=== PATIENT | male | born 1975 | race Two or more races ===

== ENCOUNTER 2024-06-16 15:35 | Outpatient (AMB) | payer OTHER, SELFPAY ==
--- OUTSIDE RECORDS SUMMARY | 2024-06-16 15:37 | XMS_ITS | Patient Health Record ---
Author Organization [facility] Address [address] [facility] [address] [place] [address] Care Team Providers Care Supply Chain Design Manager Name Role Phone Unknown, Unknown Primary Care Provider Unavailab MARQUES BarrazaHAMMAD Unavailable [phone] Juan DiegochunGavi hubbard Unavailable [phone] Allergies No Known Allergies Results Component Value Reference Range Notes Comp. Metabolic Panel ([id number] Reviewed date:02/20/2024 07:56:40 PM Interpretation: Performing Lab:[facility], [address] [place] [address], Phone - [phone], Director - Jayson Notes/Report: Glucose 94 70-99 mg/dL BUN 20 6-24 mg/dL Creatinine 0.95 0.76-1.27 mg/dL eGFR 99 >59 mL/min/1.73 BUN/Creatinine Ratio 21 9-20 Sodium 139 134-144 mmol/L Potassium 4.6 3.5-5.2 mmol/L Chloride 103 96-106 mmol/L Anion Gap 12.0 10.0-18.0 mmol/L Carbon Dioxide, Total 24 20-29 mmol/L Calcium 9.4 8.7-10.2 mg/dL Protein, Total 7.5 6.0-8.5 g/dL Albumin 4.5 4.1-5.1 g/dL Globulin, Total 3.0 1.5-4.5 g/dL Bilirubin, Total 0.8 0.0-1.2 mg/dL Alkaline Phosphatase 94 44-121 IU/L AST (SGOT) 22 0-40 IU/L ALT (SGPT) 41 0-44 IU/L LP+Non-HDL Cholesterol-[id number] 5 Reviewed date:02/20/2024 07:54:23 PM Interpretation: Performing Lab:[facility], [address], [place], Phone - [phone], Director - Jayson Notes/Report: Cholesterol, Total 237 100-199 mg/dL Triglycerides 127 0-149 mg/dL HDL Cholesterol 41 >39 mg/dL VLDL Cholesterol Reilly 23 5-40 mg/dL LDL Chol Calc ([facility]) 173 0-99 mg/dL Non-HDL Cholesterol 196 0-129 mg/dL Reason For Referral Reason c-scope please evalu ate and treat Diagnosis 1 Encounter for screen ing for malignant neoplasm of colon (Z12.11) Referral Organization [facility] Referring Provider First Name [facility] Referring Provider Last Name Derick Referred Provider Specialty Gastroentero logy General Notes REFERRAL WAS FAXED [facility]. PLEASE CONTACT PATIENT FOR SCHEDULING., Brandi Chaves 02/24/2024 04:00:15 PM > Referral Priority Routine Reason Patient would like t o establish care with production support manager, he has strong FHX of CVD please evaluate and treat Diagnosis 1 Encounter for screen ing for cardiovascular disorders (Z13.6) Referral Organization [facility] Referring Provider First Name Vanessa Referring Provider Last Name Derick Referred Provider Specialty Cardiology General Notes Referral was faxed [facility]. Please contact patient for scheduling.Anastacio Rashida 02/28/2024 01:44:15 PM > Referral Priority Routine Reason please evaluate and treat Please evaluate and treat Diagnosis 1 Pain in left shoulde r (M25.512) Referral Organization [facility] Referring Provider First Name Vanessa Referring Provider Last Name Derick Referred Provider Specialty Orthopedic S urgery General Notes Please call the jigar ent to schedule the appointment Referral Priority Routine Reason please evaluate and treat Please evaluate and treat Diagnosis 1 Pain in left shoulde r (M25.512) Referral Organization [facility] Referring Provider First Name [facility] Referring Provider Last Name Derick Referred Provider Specialty Physical The rapist General Notes Please call the jigar ent to schedule the appointment Referral Priority Routine Medications Medication SIG (Take, Route, Fr equency, Duration) Notes Start Date End Date Status Ibuprofen 800 MG 1 tablet with food o r milk as needed Orally every 8 hrs for 30 days Active Meloxicam 15 MG TAKE 1 TABLET BY ROD TH EVERY DAY FOR 30 DAYS for 30 Active tiZANidine HCl 4 MG 1 tablet at bedtime as needed Orally Once at night for 90 days Active Immunizations Vaccine Route Administration Date Status Comme nts COVID Moderna Unknown 06/04/2020 Administered COVID Moderna Unknown 07/02/2020 Administered COVID Moderna Unknown 02/24/2021 Administered TDAP Unknown 09/19/2021 Administered Social History Tobacco Use: Social History Observation Description Date Details (start date - stop date) Former Smoker NA - NA Tobacco Use/Smoking Question Answer Notes Are you a former smoker How long has it been since you last smoked? 5-10 years Problems Problem Type SNOMED Code ICD Code Onset Dates Problem Status W/U Status Risk Notes Problem Obesity due to excess calories (425261612) Other obesity due to excess calories (E66.09) Active confirmed Problem Migraine with aura, not intractable, without status migrainosus (G43.109) Active confirmed Vital Signs Heart Rate 90 /min 04/11/2024 Temperature 96.7 degrees Fahrenheit 04/11/2024 Blood pressure diastolic 80 mm Hg 04/11/2024 Oximetry 98 % 04/11/2024 Height 5'7'' in 04/11/2024 Blood pressure systolic 110 mm Hg 04/11/2024 Weight 230.0 lbs 04/11/2024 BMI 36.02 kg/m2 04/11/2024 Encounters Encounter Location Date Provider Diagnosis [address] [place] [address] 08/16/[address] [address] 02/24/2024 Ghadeer Mazloum Migraine with aura, not intractable, without status migrainosus G43.109 ; Encounter for general adult medical examination without abnormal findings Z00.00 ; Other obesity due to excess calories E66.09 ; Dietary counseling and surveillance Z71.3 ; Encounter for screening for malignant neoplasm of colon Z12.11 ; Hyperlipidemia, mixed E78.2 and Annual visit for general adult medical examination without abnormal findings Z00.[address] [place] [address] 04/11/2024 Ghadeer Mazloum Pain in left shoulde r M25.512 [facility] [address] [facility] [address] [place] [address] 02/24/2024 MONA BROOKS [facility] [address] [facility] [address] [place] [address] 02/28/2024 Ghadeer Mazloum [facility] [address] [facility] [address] [place] [address] 05/17/2024 Ghadeer Mazloum Pain in left shoulde r M25.512 [facility] [address] [facility] [address] [place] [address] 05/24/2024 Ghadeer Mazloum Encounter for screening for respiratory tuberculosis Z11.1 Assessments Encounter Date Diagnosis (ICD Code) Assessment Notes Treatment Notes Treatment Clinical Notes Section Notes 02/24/2024 Migraine with aura, not intractable, without status migrainosus (ICD-10 - G43.109) Mr Mao is a 48-year-old gentleman with migraine headaches here for annual physical examination. Plan is as follows: Migraine. -Continue Ibuprofen 800 MG as needed on an empty stomach. Identify and watch out for any triggers. Class 1 obesity. Advised dietary restrictions and regimental exercise. Goal is to lose 20 lbs until next visit. HLD: - Statin not recommended at this point, he is close to meet the guidelines of initiating statins, however I have discussed given his family history and abnormal lipid panel, I would suggest starting low dose maintenance along with diet modification. He defers that or now, instead he prefers diet modification first and then we will re-evaluate in 3 months. Given strong family history of CVD, calculated CVD score and it came up to 7.8 percent, recommendation is if number is 10 percent or higher is to discuss initiating ASA. However, given that his lifestyle is mostly sedentary, vapes, abnormal lipid panel along with family history of cardiac events. I have recommended starting on ASA for secondary prevention. Also, they would like to be referred to cardiology to establish care. Referred patient. - As for now we will optimize management. Colon cancer screening. Referred to GI for screening colonoscopy. Vision: UTD Dentist: UTD Immunizations. He is up-to-date on his COVID vaccinations. Screening blood work before next appointment I have rendered the services for this patient under direct supervision of Dr. Brooks, who did not see the patient but was available upon request 02/24/2024 Encounter for general adult medical examination without abnormal findings (ICD-10 - Z00.00) Mr Mao is a 48-year-old gentleman with migraine headaches here for annual physical examination. Plan is as follows: Migraine. -Continue Ibuprofen 800 MG as needed on an empty stomach. Identify and watch out for any triggers. Class 1 obesity. Advised dietary restrictions and regimental exercise. Goal is to lose 20 lbs until next visit. HLD: - Statin not recommended at this point, he is close to meet the guidelines of initiating statins, however I have discussed given his family history and abnormal lipid panel, I would suggest starting low dose maintenance along with diet modification. He defers that or now, instead he prefers diet modification first and then we will re-evaluate in 3 months. Given strong family history of CVD, calculated CVD score and it came up to 7.8 percent, recommendation is if number is 10 percent or higher is to discuss initiating ASA. However, given that his lifestyle is mostly sedentary, vapes, abnormal lipid panel along with family history of cardiac events. I have recommended starting on ASA for secondary prevention. Also, they would like to be referred to cardiology to establish care. Referred patient. - As for now we will optimize management. Colon cancer screening. Referred to GI for screening colonoscopy. Vision: UTD Dentist: UTD Immunizations. He is up-to-date on his COVID vaccinations. Screening blood work before next appointment I have rendered the services for this patient under direct supervision of Dr. Brooks, who did not see the patient but was available upon request 04/11/2024 Pain in left shoulder (ICD-10 - M25.512) Mr Mao is a 48-year-old gentleman with migraine headaches here for left shoulder pain. Plan as follows: Left shoulder pain: - Ongoing shoulder pain that radiates up to the Cervical for the past couple of months. He admits to past trauma playing sports. Pain improved with ibuprofen massaging. No specific triggers. Physical examination is remarkable for tenderness along the left trapezius muscle, positive Spurling test. Differential diagnosis, possible muscle strain, possible cervical nerve compression/Cerv ical radiculopathy. I will start patient on meloxicam side effects have been discussed and medication to be taken with food. Tizanidine to be taken at night before bedtime. I have also referred patient to physical therapy and to orthopedic for further evaluation and management. I have rendered the services for this patient under direct supervision of Dr. Brooks, who did not see the patient but was available upon request 05/17/2024 Pain in left shoulder (ICD-10 - M25.512) 05/24/2024 Encounter for screening for respiratory tuberculosis (ICD-10 - Z11.1) 02/24/2024 Other obesity due to excess calories (ICD-10 - E66.09) Mr Mao is a 48-year-old gentleman with migraine headaches here for annual physical examination. Plan is as follows: Migraine. -Continue Ibuprofen 800 MG as needed on an empty stomach. Identify and watch out for any triggers. Class 1 obesity. Advised dietary restrictions and regimental exercise. Goal is to lose 20 lbs until next visit. HLD: - Statin not recommended at this point, he is close to meet the guidelines of initiating statins, however I have discussed given his family history and abnormal lipid panel, I would suggest starting low dose maintenance along with diet modification. He defers that or now, instead he prefers diet modification first and then we will re-evaluate in 3 months. Given strong family history of CVD, calculated CVD score and it came up to 7.8 percent, recommendation is if number is 10 percent or higher is to discuss initiating ASA. However, given that his lifestyle is mostly sedentary, vapes, abnormal lipid panel along with family history of cardiac events. I have recommended starting on ASA for secondary prevention. Also, they would like to be referred to cardiology to establish care. Referred patient. - As for now we will optimize management. Colon cancer screening. Referred to GI for screening colonoscopy. Vision: UTD Dentist: UTD Immunizations. He is up-to-date on his COVID vaccinations. Screening blood work before next appointment I have rendered the services for this patient under direct supervision of Dr. Brooks, who did not see the patient but was available upon request 02/24/2024 Dietary counseling and surveillance (ICD-10 - Z71.3) Mr Mao is a 48-year-old gentleman with migraine headaches here for annual physical examination. Plan is as follows: Migraine. -Continue Ibuprofen 800 MG as needed on an empty stomach. Identify and watch out for any triggers. Class 1 obesity. Advised dietary restrictions and regimental exercise. Goal is to lose 20 lbs until next visit. HLD: - Statin not recommended at this point, he is close to meet the guidelines of initiating statins, however I have discussed given his family history and abnormal lipid panel, I would suggest starting low dose maintenance along with diet modification. He defers that or now, instead he prefers diet modification first and then we will re-evaluate in 3 months. Given strong family history of CVD, calculated CVD score and it came up to 7.8 percent, recommendation is if number is 10 percent or higher is to discuss initiating ASA. However, given that his lifestyle is mostly sedentary, vapes, abnormal lipid panel along with family history of cardiac events. I have recommended starting on ASA for secondary prevention. Also, they would like to be referred to cardiology to establish care. Referred patient. - As for now we will optimize management. Colon cancer screening. Referred to GI for screening colonoscopy. Vision: UTD Dentist: UTD Immunizations. He is up-to-date on his COVID vaccinations. Screening blood work before next appointment I have rendered the services for this patient under direct supervision of Dr. Brooks, who did not see the patient but was available upon request 02/24/2024 Encounter for screening for malignant neoplasm of colon (ICD-10 - Z12.11) Mr Mao is a 48-year-old gentleman with migraine headaches here for annual physical examination. Plan is as follows: Migraine. -Continue Ibuprofen 800 MG as needed on an empty stomach. Identify and watch out for any triggers. Class 1 obesity. Advised dietary restrictions and regimental exercise. Goal is to lose 20 lbs until next visit. HLD: - Statin not recommended at this point, he is close to meet the guidelines of initiating statins, however I have discussed given his family history and abnormal lipid panel, I would suggest starting low dose maintenance along with diet modification. He defers that or now, instead he prefers diet modification first and then we will re-evaluate in 3 months. Given strong family history of CVD, calculated CVD score and it came up to 7.8 percent, recommendation is if number is 10 percent or higher is to discuss initiating ASA. However, given that his lifestyle is mostly sedentary, vapes, abnormal lipid panel along with family history of cardiac events. I have recommended starting on ASA for secondary prevention. Also, they would like to be referred to cardiology to establish care. Referred patient. - As for now we will optimize management. Colon cancer screening. Referred to GI for screening colonoscopy. Vision: ODESSA Dentist: ODESSA Immunizations. He is up-to-date on his COVID vaccinations. Screening blood work before next appointment I have rendered the services for this patient under direct supervision of Dr. Brooks, who did not see the patient but was available upon request 02/24/2024 Hyperlipidemia, mixed (ICD-10 - E78.2) Mr Mao is a 48-year-old gentleman with migraine headaches here for annual physical examination. Plan is as follows: Migraine. -Continue Ibuprofen 800 MG as needed on an empty stomach. Identify and watch out for any triggers. Class 1 obesity. Advised dietary restrictions and regimental exercise. Goal is to lose 20 lbs until next visit. HLD: - Statin not recommended at this point, he is close to meet the guidelines of initiating statins, however I have discussed given his family history and abnormal lipid panel, I would suggest starting low dose maintenance along with diet modification. He defers that or now, instead he prefers diet modification first and then we will re-evaluate in 3 months. Given strong family history of CVD, calculated CVD score and it came up to 7.8 percent, recommendation is if number is 10 percent or higher is to discuss initiating ASA. However, given that his lifestyle is mostly sedentary, vapes, abnormal lipid panel along with family history of cardiac events. I have recommended starting on ASA for secondary prevention. Also, they would like to be referred to cardiology to establish care. Referred patient. - As for now we will optimize management. Colon cancer screening. Referred to GI for screening colonoscopy. Vision: ODESSA Dentist: INEZD Immunizations. He is up-to-date on his COVID vaccinations. Screening blood work before next appointment I have rendered the services for this patient under direct supervision of Dr. Brooks, who did not see the patient but was available upon request 02/24/2024 Annual visit for general adult medical examination without abnormal findings (ICD-10 - Z00.00) Mr Mao is a 48-year-old gentleman with migraine headaches here for annual physical examination. Plan is as follows: Migraine. -Continue Ibuprofen 800 MG as needed on an empty stomach. Identify and watch out for any triggers. Class 1 obesity. Advised dietary restrictions and regimental exercise. Goal is to lose 20 lbs until next visit. HLD: - Statin not recommended at this point, he is close to meet the guidelines of initiating statins, however I have discussed given his family history and abnormal lipid panel, I would suggest starting low dose maintenance along with diet modification. He defers that or now, instead he prefers diet modification first and then we will re-evaluate in 3 months. Given strong family history of CVD, calculated CVD score and it came up to 7.8 percent, recommendation is if number is 10 percent or higher is to discuss initiating ASA. However, given that his lifestyle is mostly sedentary, vapes, abnormal lipid panel along with family history of cardiac events. I have recommended starting on ASA for secondary prevention. Also, they would like to be referred to cardiology to establish care. Referred patient. - As for now we will optimize management. Colon cancer screening. Referred to GI for screening colonoscopy. Vision: UTD Dentist: UTD Immunizations. He is up-to-date on his COVID vaccinations. Screening blood work before next appointment I have rendered the services for this patient under direct supervision of Dr. Brooks, who did not see the patient but was available upon request Plan Of Treatment Pending Test Test Name Order Date Vitamin D, 35-Iizjfcp-[id number] 02/24/2024 CBC/Differential (No Platelet)-[id number] QuantiFERON-TB Gold Plus-[id number] 05/25/19 25 TSH+Free T4 02/24/2024 Future Test Test Name Order Date Lipid Panel-[id number] 02/24/2024 Next Appt Details Provider Name:Gavi starr, 03/09/2025 01:30:00 PM, [address] [address], [place], [address], Insurance Providers Payer Name Payer Address Payer Phone Subscriber Number Group Number Insured Name Patient Relationship to Insured Coverage Start Date Coverage End Date [email or web address] [address] [address] [place] [address] [id number] Robert Mao Self - patient is the insured Medical (General) History Medical History History ICD Code migraine headaches
--- OUTSIDE RECORDS SUMMARY | 2024-06-16 15:38 | XMS_ITS ---
Author Organization [facility] Address [address] [address] Care Team Providers Care Process Equipment Operator Name Role Phone Unknown, Unknown Primary Care Provider Unavailab Gavi Abbasi Unavailable [phone] REASON FOR VISIT Medications Medications Medication SIG (Take, Route, Fr equency, [...] Once at night for 90 days Active Encounters Encounter Location Date Provider Diagnosis [facility] [address] [address] 05/17/2024 Leowaltertiera Adamsonchino Pain in left shoulder M25.512 Assessments Encounter Date Diagnosis (ICD Code) Assessment Notes Treatment Notes Treatment Clinical Notes Section Notes 05/17/2024 Pain in left shoulder (ICD-10 - M25.512) Plan Of Treatment Medication Medication Name Sig Start Date Stop Date Notes Ibuprofen 800 MG 1 tablet with food o r milk as needed Orally every 8 hrs for 30 days Meloxicam 15 MG TAKE 1 TABLET BY ROD TH EVERY DAY FOR 30 DAYS for 30 tiZANidine HCl 4 MG 1 tablet at bedtime as needed Orally Once at night for 90 days Next Appt Details Provider Name:Gavi starr, 03/09/2025 01:30:00 PM, [address] [address], [place], [address], Progress Notes * Slim MAOOB:[birth year] (48 yo M)Acc No.[id number]:05/17/2024 Patient:?Robert MAO :1975???Age:48 Y???Sex:Male Address:[address] [place] [address] * Refills? Refill tiZANidine HCl Tablet, 4 MG, Orally, 90, 1 tablet at bedtime as needed, Once at night, 90 days, Refills=3 Refill Meloxicam Tablet, 15 MG, 30 Tablet, TAKE 1 TABLET BY MOUTH EVERY DAY FOR 30 DAYS, 30, Refills=0 Refill Ibuprofen Tablet, 800 MG, Orally, 90 Tablet, 1 tablet with food or milk as needed, every 8 hrs, 30 days, Refills=3 * true * Date:? Generated for Rehan ryan/Scout/Augieitting on:?06/16/2024 03:37 PM EDT
--- OUTSIDE RECORDS SUMMARY | 2024-06-16 15:38 | XMS_ITS | Clinical Summary ---
Author Organization [facility] My e[employer] App [facility] Address [address] [address] Phone Care Team Providers Care Panelbeater Name Role Phone Jeff Paredes MD Primary Care Provider [phone] Social History Tobacco Use Types Packs/Day Years Used Date Smoking Tobacco: Never Assessed Sex and Gender Information Value Date Recorded Sex Assigned at Not on file Legal Sex Male 11:06 AM EDT Gender Identity Not on file Sexual Orientation Not on file Plan of Treatment Health Maintenance Due Date Last Done Comments DTaP,Tdap,and Td Vaccines (1 - Tdap) 08/24/1995 Hepatitis B Vaccines (1 of 3 - 19+ 3-dose series) 08/24/1995 Cholesterol Screening (Lipid Panel) 09/03/2023 Colorectal Cancer Screening: Colonoscopy 09/03/2023 Depression Screening 09/03/2023 HIV Screening 09/03/2023 Hepatitis C Screening 09/03/2023 Social Influencers of Health Screening 09/03/2023 COVID-19 Vaccine ( - 2023-2 5 season) 2023 Influenza Vaccine (Season Ended) 2024 HIB Vaccines Aged Out No longer eligi ble based on patient's age to complete this topic HPV Vaccines Aged Out No longer eligi ble based on patient's age to complete this topic Hepatitis A Vaccines Aged Out No long er eligible based on patient's age to complete this topic IPV Vaccines Aged Out No longer eligi ble based on patient's age to complete this topic MMR Vaccines Aged Out No longer eligi ble based on patient's age to complete this topic Meningococcal ACWY Vaccine Aged Out N o longer eligible based on patient's age to complete this topic Meningococcal B Vaccine Aged Out No l onger eligible based on patient's age to complete this topic Pneumococcal Vaccine: Pediat rics (0 to 5 Years) and At-Risk Patients (6 to 64 Years) Aged Out No longer eligible b ased on patient's age to complete this topic RSV Immunization Patients Un marcelo 20 months Aged Out No longer eligible b ased on patient's age to complete this topic Varicella Vaccines Aged Out No longer eligible based on patient's age to complete this topic Care Teams Panelbeater Relationship Specialty Start Date End Date Jeff Paredes MD [address] [place] [id number] PCP - General 02/15/23
--- OUTSIDE RECORDS SUMMARY | 2024-06-16 15:38 | XMS_ITS ---
Author Organization [facility] Address [address] [place] [address] Care Team Providers Care Rug Renovator Name Role Phone Unknown, Unknown Primary Care Provider Unavailab Gavi Abbasi Unavailable [phone] Allergies No Known Allergies Reason For Referral Reason please evaluate and treat Please evaluate and treat Diagnosis 1 Pain in left shoulde r (M25.512) Referral Organization [facility] Referring Provider First Name Gavi Referring Provider Last Name Harper Referred Provider Specialty Orthopedic S urgery General Notes Please call the jigar ent to schedule the appointment Referral Priority Routine Reason please evaluate and treat Please evaluate and treat Diagnosis 1 Pain in left shoulde r (M25.512) Referral Organization [facility] Referring Provider First Name Gavi Referring Provider Last Name Harper Referred Provider Specialty Physical The rapist General Notes Please call the jigar ent to schedule the appointment Referral Priority Routine REASON FOR VISIT L shoulder pain Medications Medication SIG (Take, Route, Fr equency, Duration) Notes Start Date End Date Status Meloxicam 15 MG 1 tablet Orally Once a day for 30 days 04/11/2024 Active tiZANidine HCl 4 MG 1 tablet at bedtime as needed Orally Once a day for 30 days 04/11/2024 Ac tive Ibuprofen 800 MG 1 tablet with food o r milk as needed Orally every 8 hrs for 30 days Active Vital Signs Temperature 96.7 degrees Fahrenheit 04/12/19 25 Oximetry 98 % 04/11/2024 Heart Rate 90 /min 04/11/2024 Blood pressure systolic 110 mm Hg 04/12/19 25 Blood pressure diastolic 80 mm Hg 025 Weight 230.0 lbs 04/11/2024 BMI 36.02 kg/m2 04/11/2024 Height 5'7'' in 04/11/2024 Encounters Encounter Location Date Provider Diagnosis [facility] [address] [place] [address] 04/11/2024 Gavi Saleem Pain in left shoulder M25.512 Assessments Encounter Date Diagnosis (ICD Code) Assessment Notes Treatment Notes Treatment Clinical Notes Section Notes 04/11/2024 Pain in left shoulder (ICD-10 - [...] diagnosis, possible muscle strain, possible cervical nerve compression/Cer vical radiculopathy. I will start patient on meloxicam [...] was available upon request Plan Of Treatment Medication Medication Name Sig Start Date Stop Date Notes Meloxicam 15 MG 1 tablet Orally Once a day for 30 days 05/2024 tiZANidine HCl 4 MG 1 tablet at bedtime as needed Orally Once a day for 30 days 04/11/2024 Referrals Referral Date Details 04/11/2024 04/11/2024, please e valuate and treat Please evaluate and treat 04/11/2024 04/11/2024, please e valuate and treat Please evaluate and treat Next Appt Details Follow Up: next appt, Reason : Provider Name:Gavi starr, 03/09/2025 01:30:00 PM, [address] [facility] [facility] [address], [place], [address], Progress Notes * Slim MAOOB:[birth year] (48 yo M)Acc No.[id number]:04/11/2024 Patient:Robert KEEN Provider:?Gavi Saleem :1975???Age:48 Y???Sex:Male Chris e:04/11/2024 Address:[address] [place], [place] [id number] Pcp:Unknown Unknown Subjective: * Chief Complaints: * ???L shoulder pain * HPI: ???Internal Medicine:?Mr Daylin is a 48-year-old gentleman with migraine headaches here for left shoulder pain. He states that it has been since December. He states that pain starts at the left shoulder and radiates up. He admits to past trauma due to sports. No certain triggers. He takes Ibuprofen as needed and massage which improve pain. he denies any other active issues. * ROS:?General/Constitutional:?Overall health?Good.?Change in appetite?denies.?Chills?denies.?Fever?denies.?Night sweats?denies.?Sleep disturbance?denies.?Weight gain?denies.?Weight loss?denies.?Neurologic:?Difficulty speaking?denies.?Dizziness?denies.?Gait abnormality?denies.?Headache?denies.?Loss of strength?denies.?Memory loss?denies.?Seizures?denies.?Tingling/Numbness?denies .?Ophthalmologic:?Blurred vision?denies.?Discharge?denies.?Dry eye?denies.?Red eye?denies.?ENT:?Change in Voice?Denies.?Cold Symptoms?Denies.?Cough?Denies.?Dizziness?Denies.?Nasal Congestion?Denies.?Otalgia?Denies.?postnasal drip?Denies.?Blocked ear?denies.?Nosebleed?denies.?Snoring?denies.?Cardiovascular:?Diaphoresis?Denies.?Pedal Edema?Denies.?PND (Paroxsymal nocturnal dyspnea)?Denies.?Chest pain?denies.?Difficulty laying flat?denies.?Dyspnea on exertion?denies.?Heart murmur?denies.?Orthopnea?denies.?Respiratory:?Snoring?denies.?Asthma?denies.?Cough?denies.?Shortness of breath with exertion?denies.?Sputum production?denies.?Wheezing?denies.?Gastrointestinal:?Change in bowel habits?denies.?Constipation?denies.?Decreased appetite?denies.?Diarrhea?denies.?Heartburn?denies.?Nausea?denies.?Vomiting?vicente es.?Musculoskeletal:?tingling/numbness?Denies.?myalgias?Denies.?Joint Swelling?Denies.?extremeties?normal.?Patient complaining of?left shoulder pain.?Arthritis?denies.?Back problems?denies.?Carpal tunnel?denies.?Joint stiffness?denies.?Muscle aches?denies.?Endocrine:?Bowel Changes?Denies.?Breast Discharge?Denies.?poor libido?Denies.?Cold intolerance?denies.?Excessive sweating?denies.?Excessive thirst?denies.?Frequent urination?denies.?Thyroid problems?denies.?Skin:?Bruising?Denies.?Eczema?denies.?Hair changes?denies.?Rash?denies.?Skin lesion(s)?denies.?Psychiatric:?Anxiety?denies.?Depressed mood?denies.?Difficulty sleeping?denies.?Nervous breakdown?denies.?Substance abuse?denies.?Urology:?blood in urine?denies.?burning on urination?denies.?difficulty urinating?denies.?discharge?denies.?dysuria?denies.? * Medical History:? * Medications:?TakingIbuprofen 800 MG Tablet 1 tablet with food or milk as needed Orally every 8 hrs Medication List reviewed and reconciled with the patientTaking Ibuprofen 800 MG Tablet 1 tablet with food or milk as needed Orally every 8 hrs Medication List reviewed and reconciled with the patient * Allergies:?N.K.D.A.no[Allerg ies Verified] Objective: * Vitals:?Temp:96.7F, Oxygen s at %:98%, HR:90/min, BP:110/80mm Hg, Wt:230.0lbs, BMI:36.02Index, Ht: 5'7''. * Examination: ???General Examination: ?Psychiatry?Normal.?GENERAL APPEARANCE:?Well developed, well nourished, in no acute distress.?MUSCULOSKELETAL:?Cervical spine normal, Tender to palpate Along the left trapezius muscle, positive Spurling test, negative arc, negative lift off, negative [place], normal resistance.?HEAD:?Normocephalic, atraumatic.?EYES:?Pupils equal, round, reactive to light and accommodation, sclera non-icteric.?EARS:?Normal.?ORAL CAVITY:?Normal.?THROAT:?Clear.?OROPHARYNX?Normal.?SINUSES?Normal.?NECK/THYROID:?Neck supple, full range of motion, no cervical lymphadenopathy.?SKIN:?Warm and dry, no suspicious lesions.?HEART:?, S1, S2 normal, regular rate and rhythm, no murmurs, rubs, gallops.?LUNGS:?clear to auscultation bilaterally.?BREASTS:?__.?ABDOMEN:?Soft, nontender, nondistended, bowel sounds present, normal.?EXTREMITIES:?Normal.?PERIPHERAL PULSES:?Normal.?NEUROLOGIC:?Nonfocal,? appropriate?motor strength normal upper and lower extremities, sensory exam intact.?FEMALE GENITOURINARY:?__.?MALE GENITOURINARY:?__.?PODIATRIC:?Normal.?Slat Basket Top Maker? .? Assessment: * Assessment: 1.?Pain in left shoulder - M 25.512 (Primary)??? Mr Mao is a 48-year-old gentleman with migraine headaches here for left shoulder pain. Plan as follows: Left shoulder pain: - Ongoing shoulder pain that radiates up to the Cervical for the past couple of months.? He admits to past trauma playing sports.? Pain improved with ibuprofen massaging. No specific triggers. Physical examination is remarkable for tenderness along the left trapezius muscle, positive Spurling test.? Differential diagnosis, possible muscle strain, possible cervical nerve compression/Cervical radiculopathy.? I will start patient on meloxicam side effects have been discussed and medication to be taken with food.? Tizanidine to be taken at night before bedtime.? I have also referred patient to physical therapy and to orthopedic for further evaluation and management. ??I have rendered the services for this patient under direct supervision of Dr. Brooks, who did not see the patient but was available upon request Plan: * Treatment: * Procedure Codes:?3079F DIAST BP 80-89 MM [id number] SYST BP LT 130 MM HG * Follow Up:?next appt * * Sign off status: Completed true * Provider:?Gavi Saleem Date:?04/12/19 Generated for Rehan ryan/Scout/Cat on:?06/16/2024 03:37 PM EDT History and Physical Notes * HPI (History of Present Illness) Category Sub-Category Detail Notes Category Not es Internal Medicine Mr Praneeth palafox is a 48-year-old gentleman with migraine headaches here for left shoulder pain. He states that it has been since December. He states that pain starts at the left shoulder and radiates up. He admits to past trauma due to sports. No certain triggers. He takes Ibuprofen as needed and massage which improve pain. he denies any other active issues. Examination Category Sub-Category Detail Notes Category Not es General Examination GENERAL APPEARANCE: Well dev eloped, well nourished, in no acute distress HEAD: Normocephalic, atrau matic EYES: Pupils equal, round, reactive to light and accommodation, sclera non-icteric EARS: Normal THROAT: Clear NECK/THYROID: Neck supple, full ra nge of motion, no cervical lymphadenopathy HEART: , S1, S2 normal, reg ular rate and rhythm, no murmurs, rubs, gallops LUNGS: clear to auscultatio n bilaterally ABDOMEN: Soft, nontender, non distended, bowel sounds present, normal NEUROLOGIC: Nonfocal, appropriat e motor strength normal upper and lower extremities, sensory exam intact SKIN: Warm and dry, no nubia picious lesions EXTREMITIES: Normal PERIPHERAL PULSES: Normal BREASTS: __ MUSCULOSKELETAL: Cervical spine herberth l, Tender to palpate Along the left trapezius muscle, positive Spurling test, negative arc, negative lift off, negative [place], normal resistance MALE GENITOURINARY: __ FEMALE GENITOURINARY: __ ORAL CAVITY: Normal PODIATRIC: Normal Psychiatry Normal OROPHARYNX Normal SINUSES Normal Slat Basket Top Maker Consultation Request Notes Referral Date Referring Provider Referred Provider Not es 04/11/2024 Gavi Saleem , please eval uate and treat Please evaluate and treat 04/11/2024 Gavi Saleem , please eval uate and treat Please evaluate and treat
--- NOTE | 2024-06-16 15:41 | MHC.OFFVIS ---
Vital Signs 06/16/24 15:52 06/16/24 16:22 Height 5 ft 8 in Weight 240 lb BMI 36.5 BP 150/84 H 129/79 Blood Pressure Location Rt brachial Position Sitting Pulse 80 Pulse Source Pulse Oximeter Pulse Oximetry (%) 97 Oxygen Delivery Method Room Air Intake Visit Reasons: pre colonoscopy Intake Note: NEW PATIENT for initial colo screening. No FMHx reported. Pt only aware of maternal FMHx. No paternal FMHx obtainable. CC; Pt denies any GI sx or concerns at this time. Youth Services Librarian Required: No Accompanied by: Self / Same As Patient Allergies No Known Allergies Allergy (Verified 06/16/24 15:42) Medication List - Last Reconciled 06/16/24 by Yasmin Pickett CNP ibuprofen 800 mg PO TID meloxicam 15 mg PO DAILY tizanidine 4 mg PO BEDTIME HPI HPI pre colonoscopy: Details: Patient is a 48-year-old male with PMH of migraines, obesity and hyperlipidemia. Referred by PCP for pre colonoscopy screening. Patient presents for initial consultation for a colonoscopy referral. No prior surgeries. No current stomach-related symptoms. Bowel movements occur daily, described as soft, formed, and regular, without issues such as constipation, loose stools, or blood in stools. Reports normal abdominal health with no belly pain, no heartburn, acid reflux, regurgitation, or trouble swallowing. Patient noted elevated BP today, likely due to rushing, with a usual stable BP. Recent weight gain of 20 pounds attributed to a sedentary lifestyle and occupation as a truck loader and unloader. No recent illness with fever, nausea, or vomiting. Patient has a history of migraines, which have improved in frequency but are severe when they occur, managed with ibuprofen 800 mg. Social History - Tobacco Use: No, quit 10 years ago. - Alcohol Use: Rare, only during family gatherings. - Drug Use: None. - Occupation: public transit bus driver. - Living Situation: Lives with . - family hx as below. Although paternal side unknown. - denies personal hx of CA - denies significant cardiopulmonary history PFSH Medical History (Updated 06/16/24 @ 16:37 by Yasmin Pickett CNP) Obesity due to excess calories Obesity (BMI 30-39.9) Colon cancer screening Foot laceration involving tendon Family History (Updated 05/09/25 @ 16:09 by Yasmin Pickett CNP) Mother Breast cancer Myocardial infarction Maternal Aunt Breast cancer Maternal Uncle Myocardial infarction Sister Breast cancer Social History (Updated 06/16/24 @ 15:50 by Edmundo Beck [facility]) Alcohol intake: never Patient Tobacco Use Status: Former Tobacco user Use of substances other than those prescribed or required for medical reasons: No Review of Systems Const Reports as per HPI and Reports weight gain ( Weight increase of 20 pounds) ENT Reports as per HPI Card Reports as per HPI Resp Reports as per HPI GI Reports as per HPI Reports as per HPI Physical Exam Vital Signs: Last Vital Signs Pulse 80 06/16/24 15:52 BP 150/84 H 06/16/24 15:52 Pulse Ox 97 06/16/24 15:52 Oxygen Delivery Method Room Air 06/16/24 15:52 BMI result Body Mass Index 36.5 Const General: healthy appearing, no acute distress and well developed Nutritional Appearance: well nourished Orientation/consciousness: patient oriented x3 HEENT Head: Yes normal to inspection, Yes normocephalic and Yes atraumatic Face and sinus: Yes normal facial exam Eyes General: appearance normal, both eyes and all related structures Neck Neck: Yes normal visual inspection Resp Effort & Inspection: normal respiratory effort, able to speak in complete sentences, no tracheal deviation and symmetric chest movement Auscultation: clear to auscultation bilaterally Cardio Jugular venous distension: no JVD Rate: regular rate Rhythm: regular rhythm Heart sounds: S1 normal heart sound present, S2 normal heart sound present, no gallops and no murmurs GI Inspection: Yes normal to inspection, No distended and Yes obesity Palpation (GI): Soft to palpation, not firm, nontender and No hepatosplenomegaly present Auscultation: normal bowel sounds Neuro General: patient oriented x3 Gait exam (Neuro): Normal gait present Psych Appearance: grossly normal Mental Status: mental status grossly normal Speech and movement: Normal speech and movement present Affect: normal affect Attitude: cooperative Thought process: Normal thought process present Thought content: Normal thought content present Insight: Good insight present (Psych) Judgement: Good judgement present (Psych) Assessment & Plan Assessment & Plan (1) Colon cancer screening: Code(s): Z12.11 - Encounter for screening for malignant neoplasm of colon Category: Medical Plan: Due for index screening colonoscopy. Diagnostic Tests: Prescriptions for laxative tablets and Miralax sent to pharmacy; instructions for Gatorade purchase and clear liquid diet given. Medications: - Ibuprofen discontinued 7 days prior to procedure. - Use Tylenol if needed for pain. Patient educated on procedure preparation, including avoiding certain foods and ensuring clear liquid intake. Advised on necessity for ride post-procedure due to sedation. (2) Obesity due to excess calories: Code(s): E66.09 - Other obesity due to excess calories Category: Medical Qualifiers: Obesity classification: adult class 2 (BMI 35 - 39.9) Serious obesity comorbidity presence: with serious comorbidity Body mass index: BMI 36.0-36.9 Qualified Code(s): E66.812 - Obesity, class 2; E66.01 - Morbid (severe) obesity due to excess calories; Z68.36 - Body mass index [BMI] 36.0-36.9, adult Plan: BMI 36.5. Discussion on lifestyle modifications to promote healthy weight: -Well-balanced diet -Adequate hydration with water -Advice given on reducing sedentary behavior, incorporating exercise into routine despite roxann occupation. -Encouraged small, gradual changes towards increased physical activity Plan BP improved upon recheck. Follow-up after colonoscopy. Time: I spent a total of 30 minutes on the date of encounter which includes: Preparing to see the patient (reviewed previous documentation, test results and medical history) Performing a medically appropriate exam and/or evaluation Ordering medications, tests, and procedures Documenting clinical information in the health record Medications: New polyethylene glycol 3350 (Miralax) per colonoscopy prep instructions 238 grams PO ONCE 238 grams 0RF bisacodyl Take four tablets once for 1 day per colonoscopy instructions 5 mg PO ONCE 1 day 4 tabs 0RF Coding Level of Care Code New Pt New Pt Level 3 (73984) Patient Type New Diagnoses Colon cancer screening Z12.11 Class 2 severe obesity due to excess calories with serious comorbidity and body mass index (BMI) of 36.0 to 36.9 in adult E66.812; E66.01; Z68.36 Obesity classification: adult class 2 (BMI 35 - 39.9) Serious obesity comorbidity presence: with serious comorbidity Body mass index: BMI 36.0-36.9
[2024-06-16 15:52] VITALS: BP 150/84; PULSE 80; O2SAT 97; BMI 36.5
[2024-06-16 16:22] VITALS: BP 129/79
== END 2024-06-16 16:13 | disposition home or self-care (01) ==
LOC: HO.HGI 15:35
PROVIDERS: Visit Provider Nurse Practitioner Family
DX: Z01.818 Encounter for other preprocedural examination (principal); Z12.11 Encounter for screening for malignant neoplasm of colon
CPT/HCPCS: S0285

== ENCOUNTER → 2024-06-16 15:35 | Outpatient (BNVA) | payer OTHER, SELFPAY | PROVIDERS: Visit Provider Nurse Practitioner Family ==

== ENCOUNTER 2024-11-30 05:56 | Day surgery (SDC) | payer OTHER, SELFPAY ==
--- OUTSIDE RECORDS SUMMARY | 2024-10-05 10:08 | XMS_ITS | Patient Health Record ---
Author Organization [facility] Address [address] [place] [address] Care Team Providers Care Shoe Ironer Name Role Phone Unknown, Unknown Primary Care Provider Unavailab pancho BROOKSLALOD Unavailable [phone] Gavi Saleem Unavailable [phone] Allergies No Known Allergies Results Component Value Reference Range Notes QuantiFERON-TB Gold Plus-182 [id number] Reviewed date:07/24/2024 08:24:08 AM Interpretation: Performing Lab:[facility], [facility], Phone - [phone], Director - Jayson Notes/Report: QuantiFERON Incubation Incubation performed. QuantiFERON-TB Gold Plus Negative Negative No response to M tuberculosis antigens detected. Infection with M tuberculosis is unlikely, but high risk individuals should be considered for additional testing (ATS/IDSA/CDC Clinical Practice Guidelines, 2017). The reference range is an Antigen minus Nil result of <0.35 IU/mL. Chemiluminescence immunoassay methodology QuantiFERON Criteria QuantiFERON-TB Gold Plus is a qualitative indirect test for M tuberculosis infection (including disease) and is intended for use in conjunction with risk assessment, radiography, and other medical and diagnostic evaluations. The QuantiFERON-TB Gold Plus result is determined by subtracting the Nil value from either TB antigen (Ag) value. The Mitogen tube serves as a control for the test. QuantiFERON TB1 Ag Value 0.08 QuantiFERON TB2 Ag Value 0.10 QuantiFERON Nil Value 0.10 QuantiFERON Mitogen Value >10.00 Comp. Metabolic Panel (14)-[id number] Reviewed date:02/20/2024 07:56:40 PM Interpretation: Performing Lab:[facility], [address] [facility], Phone - [phone], Director - Jayson Notes/Report: Glucose 94 70-99 [...] IU/L ALT (SGPT) 41 0-44 IU/L LP+Non-HDL Cholesterol-11675 5 Reviewed date:02/20/2024 07:54:23 PM Interpretation: Performing Lab:[facility], [address] [facility], [place], Phone - [phone], Director - Jayson Notes/Report: Cholesterol, Total 237 100-199 mg/dL Triglycerides 127 0-149 mg/dL HDL Cholesterol 41 >39 mg/dL VLDL Cholesterol Reilly 23 5-40 mg/dL LDL Chol Calc ([facility]) 173 0-99 mg/dL Non-HDL Cholesterol 196 0-129 mg/dL Reason For Referral Reason c-scope please evalu ate and treat Diagnosis 1 Encounter for screen ing for malignant neoplasm of colon (Z12.11) Referral Organization [facility] Referring Provider First Name Gavi Referring Provider Last Name Harper Referred Provider Specialty Gastroentero logy General Notes REFERRAL WAS FAXED T O [facility]. PLEASE CONTACT PATIENT FOR SCHEDULING. Zechariah Chavesida 02/24/2024 04:00:15 PM > Referral Priority Routine Reason Patient would like t o establish care with assembly associate, he has strong FHX of CVD please evaluate and treat Diagnosis 1 Encounter for screen ing for cardiovascular disorders (Z13.6) Referral Organization [facility] Referring Provider First Name Vanessa Referring Provider Last Name Derick Referred Provider Specialty Cardiology General Notes Referral was faxed [facility] Cardiology. Please contact patient for scheduling.Anastacio Rashida 02/28/2024 01:44:15 PM > Referral Priority Routine Reason please evaluate and treat Please evaluate and treat Diagnosis 1 Pain in left shoulde r (M25.512) Referral Organization [facility] Referring Provider Last Name Derick Referred Provider Specialty Orthopedic S urgery General Notes Please call the jigar ent to schedule the appointment Referral Priority Routine Reason please evaluate and treat Please evaluate and treat Diagnosis 1 Pain in left shoulde r (M25.512) Referral Organization [facility] Referring Provider First Name Vanessa Referring Provider Last Name Derick Referred Provider Specialty Physical The rapist General Notes Please call the jigar ent to schedule the appointment Referral Priority Routine Medications Medication SIG (Take, Route, Fr equency, Duration) Notes Start Date End Date Status Ibuprofen 800 MG 1 tablet with food o r milk as needed Orally every 8 hrs; Duration: 30 days Active Meloxicam 15 MG TAKE 1 TABLET BY ROD TH EVERY DAY FOR 30 DAYS; Duration: 30 Active tiZANidine HCl 4 MG 1 tablet at bedtime as needed Orally Once at night; Duration: 90 days Active Immunizations Vaccine Route Administration [...] Notes Problem Obesity due to excess calories (521504088) Other obesity due to excess calories (E66.09) Active confirmed Problem Migraine with aura (2375965) Migraine with aura, not intractable, without status migrainosus (G43.109) Active confirmed Vital Signs Heart Rate 90 /min 04/11/2024 Temperature 96.7 degrees Fahrenheit 04/11/2024 Oximetry 98 % 04/11/2024 Blood pressure diastolic 80 mm Hg 04/11/2024 Height 5'7'' in 04/11/2024 Blood pressure systolic 110 mm Hg 04/11/2024 Weight 230.0 lbs 04/11/2024 BMI 36.02 kg/m2 04/11/2024 Encounters Encounter Location Date Provider Diagnosis [address] [place] [address] 02/24/2024 Ghadeer Mazloum Migraine with aura, not intractable, without status migrainosus G43.109 ; Encounter for general adult medical examination without abnormal findings Z00.00 ; Other obesity due to excess calories E66.09 ; Dietary counseling and surveillance Z71.3 ; Encounter for screening for malignant neoplasm of colon Z12.11 ; Hyperlipidemia, mixed E78.2 and Annual visit for general adult medical examination without abnormal findings Z00.[address] [place] [address] 04/11/2024 Ghadeer Mazloum Pain in left shoulde r M25.[address] [place] [address] 02/24/2024 DUNNWAI BROOKS [address] [place] [address] 02/28/2024 Ghadeer Mazloum [address] [place] [address] 05/17/2024 Ghadeer Mazloum Pain in left shoulde r M25.[address] [place] [address] 05/24/2024 Ghadeer Mazloum Encounter for screening for respiratory tuberculosis Z11.[address] [place] [address] 08/07/2024 Ghadeer Mazloum Assessments Encounter Date Diagnosis (ICD Code) Assessment [...] GI for screening colonoscopy. Vision: [place] Dentist: UTD Immunizations. He is up-to-date on [...] GI for screening colonoscopy. Vision: [place] Dentist: UTD Immunizations. He is up-to-date on [...] Referred to GI for screening colonoscopy. Vision: [place] Dentist: UTD Immunizations. He is up-to-date on [...] Referred to GI for screening colonoscopy. Vision: [place] Dentist: UTD Immunizations. He is up-to-date on his COVID vaccinations. Screening blood work before next appointment I have rendered the services for this patient under direct supervision of Dr. Brooks, who did not see the patient but was available upon request Plan Of Treatment Pending Test Test Name Order Date Vitamin D, 66-Vsijeez-[id number] 02/24/2024 CBC/Differential (No Platelet)-[id number] TSH+Free T4 02/24/2024 Future Test Test Name Order Date Lipid Panel-[id number] 02/24/2024 Next Appt Details Provider Name:Gavi starr, 03/09/2025 01:30:00 PM, [address] [place] [address], [phone], Insurance Providers Payer Name Payer Address Payer Phone Subscriber Number Group Number Insured Name Patient Relationship to Insured Coverage Start Date Coverage End Date [employer] [facility] [address] [address] [place] [address] [id number] Robert Mao Self - patient is the insured Medical (General) History Medical History History ICD Code migraine headaches
--- OUTSIDE RECORDS SUMMARY | 2024-10-05 10:08 | XMS_ITS | Clinical Summary ---
Author Organization [facility] Address [address] [facility] [place] [address] Phone Care Team Providers Care Acoustic Engineer Name Role Phone Gavi Saleem Primary Care Provider Social History Tobacco Use Types Packs/Day Years Used Date Smoking Tobacco: Never Assessed Sex and Gender Information Value Date Recorded Sex Assigned at Not on file Legal Sex Male 11:06 AM EDT Gender Identity Not on file Sexual Orientation Not on file Plan of Treatment Upcoming Encounters Date Type Department Care Team (Late st Contact Info) Description 01/26/2025 2:00 PM EST Office Visit [facility] [address] [place] [address] Sarmad Arias MD [address] [place] [address] [address] [place] [address] Health Maintenance Due Date Last Done Comments DTaP,Tdap,and Td Vaccines (1 - Tdap) 08/24/1995 Hepatitis B Vaccines (1 of 3 - 19+ 3-dose series) 08/24/1995 Cholesterol Screening (Lipid Panel) 09/03/2023 Colorectal Cancer Screening: Colonoscopy 09/03/2023 HIV Screening 09/03/2023 Hepatitis C Screening 09/03/2023 Social Influencers of Health Screening 09/03/2023 COVID-19 Vaccine ( - 2023-2 5 season) 2023 Depression Screening 02/09/2024 Influenza Vaccine (#1) 2024 HIB Vaccines Aged Out No longer [...] 5 Years) and At-Risk Patients (6 to 49 Years) Aged Out No longer eligible b ased on patient's age to complete this topic RSV Immunization Patients Un marcelo 20 months Aged Out No longer eligible b ased on patient's age to complete this topic Varicella Vaccines Aged Out No longer eligible based on patient's age to complete this topic Insurance [facility] Care Teams Acoustic Engineer Relationship Specialty Start Date End Date Gavi Saleem PA [address] [place] [phone] PCP - General 08/17/24
[2024-10-17 15:26] VITALS: BMI 36.5
[2024-11-28 13:47] VITALS: BMI 36.5
[2024-11-28 14:29] VITALS: BMI 33.4
[2024-11-30 06:35] VITALS: BP 144/80; PULSE 83; RESP 16; TEMP 36.1; O2SAT 98
[2024-11-30] MEDS: Lactated Ringers 1,000 ML 100 ML IVCONT (06:45)
--- NOTE | 2024-11-30 07:03 | P.CONAN_ITS ---
Documented by User: Sarah Bryant NP 11/28/24 11:43 HPI - Anesthesia Eval Consult details Narrative: 49 yr old male for colonoscopy He was referred to cardiology by PCP for family hx of CAD; spoke to pt, he climbs stairs, housework, no CP or SOB. [facility] Active Problems Active Problems: All Active Problems Obesity due to excess calories (Acute) Obesity (BMI 30-39.9) (Acute) Colon cancer screening (Acute) Past Medical History Medical History (Updated 11/28/24 @ 14:32 by Oneida Toledo, TIA) Migraines Obesity due to excess calories Obesity (BMI 30-39.9) Colon cancer screening Foot laceration involving tendon Family History Family History (Updated 06/16/24 @ 16:09 by Yasmin Pickett CNP) Mother Breast cancer Myocardial infarction Maternal Aunt Breast cancer Maternal Uncle Myocardial infarction Sister Breast cancer Surgical History Surgical History (Updated 11/28/24 @ 14:31 by Oneida Toledo RN) No pertinent past surgical history Social History Social History (Updated 11/28/24 @ 14:32 by Oneida Toledo, TIA) Alcohol intake: never Patient Tobacco Use Status: Former Tobacco user Use of substances other than those prescribed or required for medical reasons: No Are you DNR?: No Advance Directives: No Advance Directives Information Provided: Yes Poor oral hygiene: No Meds Allergies Allergy/AdvReac Type Severity Reaction Status Date / Time No Known Allergies Allergy Verified 06/16/24 15:42 Home Medications ?Medication ?Instructions ?Recorded ?Confirmed ?Last Taken ?Type ibuprofen 800 mg tablet 800 mg PO TID PRN migraines 06/16/24 11/30/24 08/28/24 History Exam Height,Weight and Vital Signs: Height 5 ft 8 in Weight 108.862 kg Documented by User: Jada Queen DO 11/30/24 07:04 [facility] Past Medical History Medical History (Updated 11/28/24 @ 14:32 by Oneida Toledo RN) Migraines Obesity due to excess calories Obesity (BMI 30-39.9) Colon cancer screening Foot laceration involving tendon Family History Family History (Updated 06/16/24 @ 16:09 by Yasmin Pickett CNP) Mother Breast cancer Myocardial infarction Maternal Aunt Breast cancer Maternal Uncle Myocardial infarction Sister Breast cancer Family history of problems with anesthesia: No Surgical History Surgical History (Updated 11/28/24 @ 14:31 by Oneida Toledo RN) No pertinent past surgical history History of Problems with Anesthesia: No Social History Social History (Updated 11/28/24 @ 14:32 by Oneida Toledo RN) Alcohol intake: never Patient Tobacco Use Status: Former Tobacco user Use of substances other than those prescribed or required for medical reasons: No Are you DNR?: No Advance Directives: No Advance Directives Information Provided: Yes Poor oral hygiene: No Meds Allergies Allergy/AdvReac Type Severity Reaction Status Date / Time No Known Allergies Allergy Verified 06/16/24 15:42 Home Medications ?Medication ?Instructions ?Recorded ?Confirmed ?Last Taken ?Type ibuprofen 800 mg tablet 800 mg PO TID PRN migraines 06/16/24 11/30/24 08/28/24 History Exam Exam Date and Time: 11/30/24 0703 Height,Weight and Vital Signs: Height 5 ft 8 in Weight 108.862 kg Vital Signs Temperature 97.0 F 11/30/24 06:35 Pulse Rate 83 11/30/24 06:35 Respiratory Rate 16 11/30/24 06:35 Blood Pressure 144/80 H 11/30/24 06:35 Pulse Oximetry 98 11/30/24 06:35 Oxygen Delivery Method Room Air 11/30/24 06:35 Temperature 97.0 F 11/30/24 06:35 Pulse Rate 83 11/30/24 06:35 Respiratory Rate 16 11/30/24 06:35 Blood Pressure 144/80 H 11/30/24 06:35 Pulse Oximetry 98 11/30/24 06:35 Oxygen Delivery Method Room Air 11/30/24 06:35 Airway Mallampati Class: I TM Dist: >3cm Neck ROM: Full Loose/Missing/Broken Teeth: No (patient denies any loose or broken teeth) Heart: S1S2 Lungs: CTAB Assessment and Plan Assessment Anesthesia Assessment: Anesthesia Plan Discussed and Chart Reviewed Final Anesthetic Review Family History of Problems with Anesthesia: No History of Problems with Anesthesia: No NPO: Yes ASA Class: II Final Preanesthetic Review: No Changes in Pt Med Stat, Meds/Allgs Chart Reviewed, Consent Obtained/Reviewed and Anes Risks/Benef Reviewed Patient Risk: Low Procedure Risk: Low Anesthetic Plan Anesthetic Plan: MAC: and Agree w/ Assess. and Plan Disposition: Standard PACU
--- NOTE | 2024-11-30 07:42 | MHC.SHP ---
Pre-Procedural Eval Section A - 24 Hr Update-Section A only Date of Service: 11/30/24 Section B - Complete if H&P > 30 days Chief Complaint: screening Relevant Family History (Specify if Yes): No Relevant Social History: None Present Medications: see Short Stay Collaborative assessment Medical History: Significant History (migraines, obesity and hyperlipidemia.) History of Previous Operations: No relevant previous surgery Allergies: Allergies Allergy/AdvReac Type Severity Reaction Status Date / Time No Known Allergies Allergy Verified 06/16/24 15:42 Review of Systems Sugical H&P ROS: Negative: Constitution, Cardiovascular, Respiratory, Neurological, Psychiatric, Hem-Onc, Allergic/Immunologic, Gastrointestinal, Genitourinary, Musculoskeletal, Integumentary, Endocrine and Eyes/Ears/Nose/Throat Exam Surgical H&P Exam: Normal: HEENT, Normal: Heart, Normal: Lungs, Normal: Extremities, Normal: Abdomen, Normal: Skin and Normal: Neurological Plan Diagnosis/Plan: Unchanged I have reviewed the history and physical and performed a pertinent physical examination on my patient. No changes have occurred unless specified. Time Spent With Patient Time: Total time managing care of this patient today ____ minutes.
--- NOTE | 2024-11-30 08:04 | P.OPN-COLO_ITS ---
Colonoscopy Operative Note Operative Note Date of Service: 11/30/24 Narrative: Operative Information Procedure Description: Colonoscopy Indication: screening Anesthesia: MAC COLONOSCOPY Instrument: Olympus variable stiffness pediatric scope 190L Colonoscopy Monitoring: Vital signs and clinical assessment, continuous EKG monitoring, Pulse oximetry, Carbon Dioxide monitoring and blood pressure monitoring were done throughout the procedure. Colon withdrawal time was 10 minutes. Procedure: The patient was placed in the left lateral decubitis position and pre-procedure medications were administered. After a digital rectal examination of the ano-rectum, the video colonoscope was inserted into the rectum and advanced through the colon to the cecum/TI. The colonoscope was slowly withdrawn in a retrograde panoramic fashion and the colon mucosa was carefully examined including a retroflexed view of the rectum. Findings and interventions are described below. Procedure Difficulty: easy Findings: Terminal Ileum-normal Cecum:normal right sided retroflexion- normal Ascending Colon: normal Transverse Colon -normal Descending Colon:normal Sigmoid Colon: normal Rectum: Retroflexion with small internal hemorrhoids seen, grade I, 6-8 mm sessile polyp removed with cold snare Anorectum - normal Intervention: cold snare Colon preparation: [place] Bowel Preparation Scale Right colon; 2 Transverse colon: 2 Left colon; 2 (0 = Unprepared colon segment with mucosa not seen due to solid stool that cannot be cleared. 1 = Portion of mucosa of the colon segment seen, but other areas of the colon segment not well seen due to staining, residual stool and/or opaque liquid. 2 = Minor amount of residual staining, small fragments of stool and/or opaque liquid, but mucosa of colon segment seen well. 3 = Entire mucosa of colon segment seen well with no residual staining, small fragments of stool or opaque liquid) Impression and Post Procedure Diagnosis: colon polyp x 1 internal hemorrhoids Plan: High fiber diet leaflet Avoid straining at stool, epsom salts and sitz bath, anusol supps or cream Repeat Colonoscopy in 5-7 years if adenoma, 10 yrs if hyperplastic or earlier if clinically indicated Above findings were reviewed with the patient and relevant handouts were provided if indicated.
[2024-11-30 08:08] VITALS: BP 104/62; PULSE 83; RESP 16; TEMP 36.4; O2SAT 96
[2024-11-30 08:15] VITALS: BP 107/63; PULSE 79; RESP 16; O2SAT 96
[2024-11-30 08:30] VITALS: BP 113/64; PULSE 70; RESP 16; O2SAT 96
[2024-11-30 08:34] VITALS: BP 104/76; PULSE 78; RESP 16; TEMP 36.4; O2SAT 97
== END 2024-11-30 09:12 | disposition home or self-care (01) ==
PROVIDERS: Visit Provider Internal Medicine Gastroenterology
PROC: 0DJD8ZZ Inspection of Lower Intestinal Tract, Via Natural or Artificial Opening Endoscopic (ICD-10-PCS; CPT 45378; principal; 2024-11-30 07:30)
DX: Z12.11 Encounter for screening for malignant neoplasm of colon (principal); E66.09 Other obesity due to excess calories; Z68.30 Body mass index [BMI] 30.0-30.9, adult; K64.0 First degree hemorrhoids; K63.5 Polyp of colon
CPT/HCPCS: 45385; 88305; J2003; J2704

== ENCOUNTER → 2024-11-30 05:56 | Outpatient (BNV) | payer OTHER, SELFPAY | PROVIDERS: Visit Provider Internal Medicine Gastroenterology | DX: Z12.11 Encounter for screening for malignant neoplasm of colon (principal); D12.8 Benign neoplasm of rectum; K64.0 First degree hemorrhoids | CPT/HCPCS: 45385 ==

== ENCOUNTER 2024-12-14 10:07 | Outpatient (AMB) | payer OTHER, SELFPAY ==
--- NOTE | 2024-12-14 10:13 | MHC.OFFVIS ---
Vital Signs 12/14/24 10:18 Height 5 ft 8 in Weight 227 lb 1.218 oz BMI 34.5 BP 154/87 H Blood Pressure Location Lt brachial Position Sitting Pulse 96 Intake Visit Reasons: s/p [place] Intake Note: Robert presents in the office as a follow up for a colonoscopy. CC: no concerns - just here for the results. Horse Farm Manager Required: No Allergies No Known Allergies Allergy (Verified 12/14/24 10:18) HPI HPI s/p [place]: Details: Patient is a 48-year-old male with PMH of migraines, obesity and hyperlipidemia. Referred by PCP for pre colonoscopy screening. FU after screening colonoscopy on 11-30-2024 (polyp removal, internal hemorrhoids). Pt reports stable GI status since colonoscopy. Denies abdominal pain, constipation, or diarrhea. BM described as regular with complete evacuation; episodic, minor BRBPR reported infrequently (e.g., once, then absent for >=1mo). No episodes of pain or pruritus from hemorrhoids. 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 No hospitalizations or urgent care visits since last appt. ded. [facility] Medical History (Updated 12/14/24 @ 11:07 by Yasmin Pickett CNP) Hemorrhoids Migraines Obesity due to excess calories Obesity (BMI 30-39.9) Colon cancer screening Foot laceration involving tendon Surgical History Hx of colonoscopy No pertinent past surgical history Family History Mother Breast cancer Myocardial infarction Maternal Aunt Breast cancer Maternal Uncle Myocardial infarction Sister Breast cancer Social History Alcohol intake: never Patient Tobacco Use Status: Former Tobacco user Tobacco use type: Cigarette Physical Exam Vital Signs: Last Vital Signs Pulse 96 12/14/24 10:18 BP 154/87 H 12/14/24 10:18 BMI result Body Mass Index 34.5 Const General: healthy appearing, no acute distress and well developed Nutritional Appearance: average body habitus Orientation/consciousness: patient oriented x3 HEENT Head: Yes normal to inspection, Yes normocephalic and Yes atraumatic Face and sinus: Yes normal facial exam Eyes General: appearance normal, both eyes and all related structures Neck Neck: Yes normal visual inspection Resp Effort & Inspection: normal respiratory effort, able to speak in complete sentences, no tracheal deviation and symmetric chest movement Cardio Jugular venous distension: no JVD Neuro General: patient oriented x3 Gait exam (Neuro): Normal gait present Psych Appearance: grossly normal Mental Status: mental status grossly normal Speech and movement: Normal speech and movement present Affect: normal affect Attitude: cooperative Thought process: Normal thought process present Thought content: Normal thought content present Insight: Good insight present (Psych) Judgement: Good judgement present (Psych) Assessment & Plan Assessment & Plan (1) Hemorrhoids: Comment: 11/30/24 Colonoscopy complete with adequate prep-6-8 mm HP polyp (rectum), grade I internal hemorrhoids. Per guidelines repeat in 10 years. Code(s): K64.9 - Unspecified hemorrhoids Category: Medical Qualifiers: Hemorrhoid type: first degree Qualified Code(s): K64.0 - First degree hemorrhoids Plan: - Stable, mild, non-painful, rare/intermittent BRBPR, no distress. Conservative management appropriate; reinforces pt education due to ongoing occupational sitting risk. - Additional Testing: - None unless frequency or severity of BRBPR increases. - Medications: - OTC hemorrhoid cream (e.g., pramoxine or phenylephrine-based prep) prn for sx (pain, pruritus). - Lifestyle Recommendations: - Encourage regular BM, high fiber diet, adequate hydration; minimize prolonged sitting if feasible; recommend periodic position changes or stretching when able; continue cushion/pillow use and trial alternatives as needed. - Referrals / Coordination of Care: - Re-eval if increase in bleeding, pain, or lack of response to conservative tx. - Follow-Up Plan: - RTC prn for increased sx or concerns; otherwise FU at next screening interval. Plan Follow-up as needed Time: I spent a total of 15 minutes on the date of encounter which includes: Preparing to see the patient (reviewed previous documentation, test results and medical history) Performing a medically appropriate exam and/or evaluation Ordering medications, tests, and procedures Documenting clinical information in the health record Coding Level of Care Code Established Pt Est Pt Level 2 (63598) Patient Type Established Diagnoses Grade I hemorrhoids K64.0 Hemorrhoid type: first degree
[2024-12-14 10:18] VITALS: BP 154/87; PULSE 96; BMI 34.5
--- OUTSIDE RECORDS SUMMARY | 2024-12-14 11:49 | XMS_ITS | Clinical Summary ---
Author Organization [facility] Address [address] [place] [address] Phone Care Team Providers Care Coal Chemist Name Role Phone Gavi Saleem Primary Care Provider [phone] Encounters Date Type Department Care Team Description 11/24/2024 Telephone Gastroenterology - [place] [address] [place] [address] Radha Jacobson MD from Last 3 Months Social History Tobacco Use Types Packs/Day Years Used Date Smoking Tobacco: Never Assessed Sex and Gender Information Value Date Recorded Sex Assigned at Not on file Legal Sex Male 11:06 AM EDT Gender Identity Not on file Sexual Orientation Not on file Plan of Treatment Upcoming Encounters Date Type Department Care Team (Late st Contact Info) Description 01/26/2025 2:00 PM EST Office Visit [place] [address] [place] [address] Sarmad Arias MD [address] [place] [address] [address] [place] [address] Health Maintenance Due Date Last Done Comments Colorectal Cancer Screening: Colonoscopy 1976 DTaP,Tdap,and Td Vaccines (1 - Tdap) 08/24/1995 Hepatitis B Vaccines (1 of 3 - 19+ 3-dose series) 08/24/1995 Cholesterol Screening (Lipid Panel) 09/03/2023 HIV Screening 09/03/2023 Hepatitis C Screening 09/03/2023 Social Influencers of Health Screening 09/03/2023 Depression Screening 02/09/2024 COVID-19 Vaccine ( - 2023-2 5 season) 2024 Influenza Vaccine (#1) 2024 RSV Immunization Adult Patie nts (1 - 1-dose 75+ series) 08/24/2051 HIB Vaccines Aged Out No longer eligi [...] patient's age to complete this topic Insurance [facility] Care Teams Coal Chemist Relationship Specialty Start Date End Date Gavi Saleem PA [address] [place] [phone] PCP - General 08/17/24
--- OUTSIDE RECORDS SUMMARY | 2024-12-14 11:49 | XMS_ITS | Patient Health Record ---
Author Organization [facility] Address [address] [place] [address] Care Team Providers Care [employer] Teacher Name Role Phone Unknown, Unknown Primary Care Provider Unavailab MARQUES BarrazaHAMMAD Unavailable [phone] Juan DiegochunGavi hubbard Unavailable [phone] Allergies No Known Allergies Results Component Value Reference Range Notes Comp. Metabolic Panel ([id number] Reviewed date:02/20/2024 07:56:40 PM Interpretation: Performing Lab:[facility], [address] [place] [address], Phone - [phone], Director - Jayson Notes/Report: Glucose 94 70-99 [...] IU/L ALT (SGPT) 41 0-44 IU/L LP+Non-HDL Cholesterol-14633 5 Reviewed date:02/20/2024 07:54:23 PM Interpretation: Performing Lab:[facility], [address], [place], Phone - [phone], Director - Jayson Notes/Report: Cholesterol, Total 237 100-199 mg/dL Triglycerides 127 0-149 mg/dL HDL Cholesterol 41 >39 mg/dL VLDL Cholesterol Reilly 23 5-40 mg/dL LDL Chol Calc (NIH) 173 0-99 mg/dL Non-HDL Cholesterol 196 0-129 mg/dL QuantiFERON-TB Gold Plus-182 879 Reviewed date:07/24/2024 08:24:08 AM Interpretation: Performing Lab:[facility], [address], [place], Phone - [phone], Director - Jayson Notes/Report: QuantiFERON Incubation Incubation [...] Nil Value 0.10 QuantiFERON Mitogen Value >10.00 Reason For Referral Reason c-scope please evalu ate and treat Diagnosis 1 Encounter for screen ing for malignant neoplasm of colon (Z12.11) Referral Organization [facility] Referring Provider First Name Gavi Referring Provider Last Name Harper Referred Provider Specialty Gastroentero logy General Notes REFERRAL WAS FAXED T O [facility]. PLEASE CONTACT PATIENT FOR SCHEDULING. 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 Please contact patient for scheduling.Anastacio Rashida 02/28/2024 01:44:15 PM > Referral Priority Routine Reason please evaluate and treat Please evaluate and treat Diagnosis 1 Pain in left shoulde r (M25.512) Referral Organization [facility] Referring Provider First Name [facility] Referring Provider Last Name Derick Referred Provider Specialty Orthopedic S urgery General Notes Please call the jigar ent to schedule the appointment Referral Priority Routine Reason please evaluate and treat Please evaluate and treat Diagnosis 1 Pain in left shoulde r (M25.512) Referral Organization [facility] Referring Provider First Name Vanessa Referring Provider [...] Notes Problem Obesity due to excess calories (230736361) Other obesity due to excess calories (E66.09) Active confirmed Problem Migraine with aura (4117234) Migraine with aura, not intractable, without status migrainosus (G43.109) Active confirmed Vital Signs Heart Rate 90 /min 04/11/2024 Temperature 96.7 degrees Fahrenheit 04/11/2024 Oximetry 98 % 04/11/2024 Blood pressure diastolic 80 mm Hg 04/11/2024 Height 5'7'' in 04/11/2024 Blood pressure systolic 110 mm Hg 04/11/2024 Weight 230.0 lbs 04/11/2024 BMI 36.02 kg/m2 04/11/2024 Encounters Encounter Location Date Provider Diagnosis [address] [place] [address] 02/24/2024 Ghadeer Mazloum Migraine with aura, not intractable, without status migrainosus G43.109 ; Encounter for general adult medical examination without abnormal findings Z00.00 ; Other obesity due to excess calories E66.09 ; Dietary counseling and surveillance Z71.3 ; Encounter for screening for malignant neoplasm of colon Z12.11 ; Hyperlipidemia, mixed E78.2 and Annual visit for general adult medical examination without abnormal findings Z00.[address] [place] [address] 04/11/2024 Ghadeer Mazloum Pain in left shoulde r M25.[address] [place] [address] 02/24/2024 DUNNWAI BROOKS [address] [place] [address] 02/28/2024 Ghadeer Mazloum [address] [place] [address] 05/17/2024 Ghadeer Mazloum Pain in left shoulde r M25.[address] [place] [address] 05/24/2024 Ghadeer Mazloum Encounter for screening for respiratory tuberculosis Z11.[address] [place] [address] 08/07/2024 Ghadeer Mazloum Assessments Encounter Date Diagnosis [...] Test Test Name Order Date Vitamin D, 91-[id number] 02/24/2024 CBC/Differential (No Platelet)-[id number] TSH+Free T4 02/24/2024 Future Test Test Name Order Date Lipid Panel-[id number] 02/24/2024 Next Appt Details Provider Name:Gavi starr, 03/09/2025 01:30:00 PM, [address] [place] [address], [phone], Insurance Providers Payer Name Payer Address Payer Phone Subscriber Number Group Number Insured Name Patient Relationship to Insured Coverage Start Date Coverage End Date [employer] [facility] [address] [address] [place] [address] [id number] Robert Mao Self - patient is the insured Medical (General) History Medical History History ICD Code migraine headaches
== END 2024-12-14 10:42 | disposition home or self-care (01) ==
LOC: HO.HGI 10:08
PROVIDERS: Visit Provider Nurse Practitioner Family
DX: K64.0 First degree hemorrhoids (principal)
CPT/HCPCS: 99212